=== PATIENT | male | born 1995 | race African-American/Black ===

== ENCOUNTER 2019-08-01 10:18 | Emergency (ER) | payer SELFPAY ==
[2019-08-01 10:27] VITALS: BP 155/88; PULSE 80; RESP 16; O2SAT 100
--- NOTE | 2019-08-01 10:35 | ED.ABDPAIN ---
HPI - Abdominal Pain General Chief Complaint: Urogenital-Male Stated Complaint: pain in lower abd Time Seen by Provider: 08/01/19 10:26 History of Present Illness HPI narrative: Mild lower abdominal cramps for the pas 2-3 days. Associated with dyuria. This morning he reports greenish penile discharge. He di have unprotected sex with a new partner about 1 week ago. He has had a previous STD. No fever, nausea, vomiting. Related Data Home Medications Medication Instructions Recorded Confirmed No Home Medications 08/01/19 08/01/19 Allergies Allergy/AdvReac Type Severity Reaction Status Date / Time No Known Allergies Allergy Verified 08/01/19 10:33 Review of Systems Review of Systems: All systems reviewed & are unremarkable except as noted in HPI and below Constitutional: Constitutional: Denies fever(s) Cardiovascular: Cardiovascular: Denies chest pain Respiratory: Respiratory: Denies dyspnea Gastrointestinal: Gastrointestinal: Reports abdominal pain, Denies constipation, Denies diarrhea, Denies nausea and Denies vomiting Genitourinary: Genitourinary: Denies hematuria, Reports dysuria and Reports penile discharge Musculoskeletal: Musculoskeletal: Denies back pain Neurologic: Denies weakness [facility] Social History Social History Gender identity (if verbalized by the patient): Male Exam Const: General: healthy appearing, no acute distress and alert Orientation/consciousness: patient oriented x3 HENMT: Head: normal to inspection Neck: Neck: normal visual inspection and no lymphadenopathy Chest: Chest palpation & inspection: no tenderness Resp: Effort & Inspection: normal respiratory effort Auscultation: clear to auscultation bilaterally, no rales, no rhonchi and no wheezes Cardio: Jugular venous distension: no JVD Rate: regular rate Rhythm: regular rhythm Heart sounds: no murmurs GI: Inspection: non-distended GI Palp: Yes Soft to palpation and No Tenderness to palpation present (GI) : Testes: Testes normal Skin: General skin exam: normal color Neuro: General: patient oriented x3 and moves all extremities Speech: normal speech Extrem: General: no edema Psych: Appearance: well kempt Affect: normal affect Course Vital Signs Vital signs: Vital Signs Pulse Rate 80 08/01/19 10:27 Respiratory Rate 16 08/01/19 10:27 Blood Pressure 155/88 H 08/01/19 10:27 Pulse Oximetry 100 08/01/19 10:27 Pulse Rate 80 08/01/19 10:27 Respiratory Rate 16 08/01/19 10:27 Blood Pressure 155/88 H 08/01/19 10:27 Pulse Oximetry 100 08/01/19 10:27 MDM - Abdominal Pain Differential Diagnosis Differential diagnosis: Likely other (Urethritis, constipation, UTI) Medical Records Attestation: I reviewed the patient's medical records. Lab Data Attestation: I reviewed the patient's lab results. Labs: Lab Results 08/01/19 08/01/19 08/01/19 Range/Units 10:40 10:40 10:41 Urine Color Yellow (Yellow) Urine Appearance Cloudy H (Clear) Urine pH 6.0 (5.0-9.0) Ur Specific [place] 1.030 (1.001-1.035) Urine Protein 2+ H (Negative) mg/dL Urine Glucose (UA) Negative (Negative) mg/dL Urine Ketones Negative (Negative) mg/dL Ur Blood (Man) Negative (Negative) Urine Nitrate Negative (Negative) Urine Bilirubin Negative (Negative) Urine Urobilinogen 4.0 H (<2.0) mg/dL Leukocyte Esterase Rfl 3+ H (Negative) JANETTE/UL Urine RBC 11-20 H (0-2) /hpf Urine WBC >75 H /hpf Ur Squamous Epith Cells Rare (Few) /hpf Urine Bacteria Trace /hpf Urine Mucus Rare /lpf C.trachomatis RNA (TMA) Pending N.gonorrhoeae RNA (TMA) Pending Trichomonas Direct ID Cancelled Urine Characteristics Cloudy Discharge Plan Discharge Clinical Impression: Urethritis Patient Disposition: Home, Self-Care Condition: Stable Instructions:
[2019-08-01] MEDS: cefTRIAXone 250 MG VIAL IM (10:47)
[2019-08-01] MEDS: AZITHROMYCIN 250 MG TABLET 1000 MG PO (10:48)
[2019-08-01] MEDS: WATER, STERILE FOR INJECTION 10 ML VIAL XX (10:48)
[2019-08-01] MEDS: metroNIDAZOLE 250 MG TABLET 2000 MG PO (10:48)
[2019-08-01 10:52] LABS: Add Urine Microscopic? YES; Appearance Urine Cloudy (Clear); Bacteria Urine Trace /hpf; Bilirubin Urine Negative (Negative); Blood Urine Negative (Negative); Color Urine Yellow (Yellow); Glucose Urine UA Negative (Negative); Ketones Urine Negative (Negative); Leukocyte Esterase Ur 3+ LEU/UL (Negative); Mucus Urine Rare /lpf; Nitrate Urine Negative (Negative); Protein Urine 2+ mg/dL (Negative); Squamous Epithelial Cell Urine Rare /hpf (Few); WBC Urine >75 /hpf
== END 2019-08-01 11:37 | disposition home or self-care (01) ==
PROVIDERS: Emergency Provider Emergency Medicine
DX: N34.2 Other urethritis (principal)
CPT/HCPCS: 81001; 87086; 87491; 87591; 96372; 99283; A9270; J0696